=== PATIENT | female | born 1945 | race Caucasian/White ===

== ENCOUNTER → 2016-12-03 | Outpatient (CLI) | payer MEDICARE ==
[~2016-12-03] MED LIST: ASPI81TA85 PO; ATEN50TA2; ATEN50TA2 PO; CALCCHW12; CLAR10CA3 PO; CLAR5CHW; FISH1000; FISH1000 PO; HYDR25TA6; LASI40TA; LUTEIN; MOME50SP; MULTCAP PO; MULTIVIT; POTA20TA2; PRED20TA PO; PRIL20CA; PRIL40CA PO; SIMV10TA2; THERGRAN; VITA100C7; VITAMIN D-3; ZOCO10TA PO; femara; fishoil; lutein
--- NOTE | 2016-12-03 11:12 | REP ---
UNILATERAL MAMMOGRAM RIGHT BREAST: CLINICAL HISTORY: Breast cancer at age 54, left breast with left mastectomy. MLO, ML and CC views of the right breast are performed and compared to prior studies most recent of which is 12/02/2015. Mild scattered fibroglandular tissue is unchanged. There is no new mass or clustered microcalcifications. IMPRESSION: ACR 2 benign mammogram right breast in this patient, status post left mastectomy for left breast cancer. Followup exam is recommended in one year. BI-RADS/ACR category 2 mammogram. Benign finding(s). Routine annual screening mammography (for women over age 40). This mammogram was interpreted with the aid of an FDA-approved computer-aided detection system. A. Negative x-ray reports should not delay biopsy if a dominant or clinically suspicious mass is present. B. Four to eight percent of cancers are not identified by x-ray. C. Adenosis and dense breasts may obscure an underlying neoplasm. The patient states she/he had a clinical breast exam in March 2016. The patient letter being requested is M1. Signed by Ernesto Sanderson MD 12/03/2016 12:30 P
== END ==
LOC: M RAD 09:55
PROVIDERS: ATTEND Internal Medicine Medical Oncology
DX: Z12.31 Encounter for screening mammogram for malignant neoplasm of breast (principal); Z85.3 Personal history of malignant neoplasm of breast; Z90.12 Acquired absence of left breast and nipple

== ENCOUNTER → 2016-12-11 | Outpatient (REF) | payer MEDICARE ==
[2016-12-11 11:55] LABS: MEAN CORPUSCULAR HEMOGLOBIN 30.7 pg (27.0-33.0); MEAN CORPUSCULAR HGB CONC 33.6 g/dl (32.0-36.5); MEAN CORPUSCULAR VOLUME 91.3 fl (80.0-96.0); RED CELL DISTRIBUTION WIDTH 12.8 % (11.5-14.5); WHITE BLOOD COUNT 4.6 K/mm3 (4.0-10.0)
[2016-12-11 12:29] LABS: ALBUMIN 3.4 GM/DL (3.2-5.2); ALBUMIN/GLOBULIN RATIO 1.06 (1.00-1.93); BILIRUBIN,TOTAL 0.4 MG/DL (0.2-1.0); CALCIUM LEVEL 9.2 MG/DL (8.8-10.2); CREATININE FOR GFR 1.19 MG/DL (0.55-1.02); FREE T4 1.09 NG/DL (0.76-1.46); GLOMERULAR FILTRATION RATE 47.6 (>39); TOTAL PROTEIN 6.6 GM/DL (6.4-8.2)
== END ==
LOC: M SFHCCLAY 09:13
PROVIDERS: ATTEND Family Medicine
DX: I48.0 Paroxysmal atrial fibrillation (principal); I10 Essential (primary) hypertension

== ENCOUNTER → 2016-12-16 | Outpatient (REF) | payer MEDICARE | LOC: M SFHCCLAY 14:45 | PROVIDERS: ATTEND Family Medicine | DX: D64.9 Anemia, unspecified (principal); Z53.8 Procedure and treatment not carried out for other reasons ==

== ENCOUNTER → 2016-12-22 | Outpatient (REF) | payer MEDICARE ==
[2016-12-22 17:26] LABS: MEAN CORPUSCULAR HEMOGLOBIN 29.5 pg (27.0-33.0); MEAN CORPUSCULAR HGB CONC 32.8 g/dl (32.0-36.5); RED CELL DISTRIBUTION WIDTH 12.6 % (11.5-14.5); RETIC HEMOGLOBIN CONTENT CHr 30.8 PG (24-36); RETICULOCYTE % ADVIA2120 2.4 % (0.5-1.5); WHITE BLOOD COUNT 4.2 K/mm3 (4.0-10.0)
[2016-12-22 17:34] LABS: PERCENT SATURATION 30.1 % (13.2-37.4); TOTAL IRON BINDING CAPACITY 312 UG/DL (250-450); TOTAL PROTEIN 6.6 GM/DL (6.4-8.2)
[2016-12-22 17:41] LABS: VITAMIN B12 LEVEL 801 PG/ML (247-911)
[2016-12-22 17:42] LABS: FOLATE > 24.0 NG/ML (>5.4)
[2016-12-23 11:35] LABS: ALBUMIN 3.71 GM/DL (3.29-5.55); ALBUMIN % 56.2 % (55.8-66.1); GAMMA GLOBULIN % 15.1 % (11.1-18.8)
== END ==
LOC: M SFHCCLAY 10:05
PROVIDERS: ATTEND Family Medicine
DX: D64.9 Anemia, unspecified (principal)

== ENCOUNTER → 2017-12-06 | Outpatient (CLI) | payer MEDICARE | LOC: M RAD 09:56 | DX: Z12.31 Encounter for screening mammogram for malignant neoplasm of breast (principal); Z85.3 Personal history of malignant neoplasm of breast; Z90.12 Acquired absence of left breast and nipple | CPT/HCPCS: 77067 ==

== ENCOUNTER → 2018-10-27 | Outpatient (REF) | payer MEDICARE ==
[2018-10-27 17:13] LABS: ALBUMIN 3.6 GM/DL (3.2-5.2); BILIRUBIN,TOTAL 0.4 MG/DL (0.2-1.0); CALCIUM LEVEL 9.5 MG/DL (8.8-10.2); CREATININE FOR GFR 1.24 MG/DL (0.55-1.30); FREE T4 1.2 NG/DL (0.76-1.46); GLOMERULAR FILTRATION RATE 45.1 (>39); POTASSIUM SERUM 4.5 MEQ/L (3.5-5.1); THYROID STIMULATING HORMONE 2.88 uIU/ML (0.358-3.740); TOTAL PROTEIN 6.9 GM/DL (6.4-8.2)
[2018-10-27 17:30] LABS: HEMATOCRIT 38.4 % (36.0-47.0); HEMOGLOBIN 12.5 g/dl (12.0-15.5); MEAN CORPUSCULAR HEMOGLOBIN 29.8 pg (27.0-33.0); MEAN CORPUSCULAR HGB CONC 32.6 g/dl (32.0-36.5); MEAN CORPUSCULAR VOLUME 91.6 fl (80.0-96.0); PLATELET COUNT, AUTOMATED 252 10^3/uL (150-450); RED BLOOD COUNT 4.19 10^6/uL (4.00-5.40); WHITE BLOOD COUNT 6.3 10^3/uL (4.0-10.0)
== END ==
LOC: M SFHCCLAY 10:47
PROVIDERS: ATTEND Family Medicine
DX: I48.0 Paroxysmal atrial fibrillation (principal); I10 Essential (primary) hypertension; E04.2 Nontoxic multinodular goiter; Z85.3 Personal history of malignant neoplasm of breast

== ENCOUNTER → 2018-10-27 | Outpatient (CLI) | payer MEDICARE ==
--- NOTE | 2018-10-27 14:03 | REP ---
BILATERAL HIPS, AP PELVIS, FIVE VIEWS: HISTORY: Trochanteric bursitis. RIGHT HIP: There is no acute fracture or dislocation. There is minimal narrowing of the joint space. IMPRESSION: Degenerative change as described above. LEFT HIP: There is no acute fracture or dislocation. There is minimal narrowing of the joint space. IMPRESSION:Degenerative change as described above.
== END ==
LOC: M CLY 11:01
PROVIDERS: ATTEND Family Medicine
DX: M16.10 Unilateral primary osteoarthritis, unspecified hip (principal); M70.62 Trochanteric bursitis, left hip; M70.61 Trochanteric bursitis, right hip; I48.0 Paroxysmal atrial fibrillation

== ENCOUNTER → 2018-11-01 | Outpatient (CLI) | payer MEDICARE ==
--- NOTE | 2018-11-01 16:20 | REP ---
THYROID ULTRASOUND: 11/01/2018. Comparison: 03/26/2015. Clinical history: Multinodular goiter, follow-up. Right lobe of the thyroid measures 4.2 x 1.1 x 1.8 cm. Left lobe is 4.5 x 1.7 x 2.1 cm. On the previous study, the right lobe was 4.6 and the left 4.7 cm in length. Findings: Gland is homogeneous except for the nodules with a 5 x 4 x 2 mm solid nodule in the mid portion of the right lobe. There is a complex nodule in the lower pole on the left 1.4 x 1.2 x 1 cm. Another complex nodule in the mid pole region 7 x 7 x 6 mm and two other nodules on the left in the mid and upper pole 7 x 6 and 7 x 5 mm. The isthmus has a thickness of 5 mm. All the nodules are smaller than on the previous ultrasound in 2014. Impression: 1. Multinodular thyroid lobes as described. The nodules are all smaller or the same than previous study. Electronically Signed by Guerrero Crow MD 11/01/2018 06:02 P
== END ==
LOC: M RAD 10:55
PROVIDERS: ATTEND Family Medicine
DX: E04.0 Nontoxic diffuse goiter (principal)

== ENCOUNTER → 2018-12-07 | Outpatient (CLI) | payer MEDICARE ==
--- NOTE | 2018-12-07 13:44 | REP ---
UNILATERAL MAMMOGRAM RIGHT BREAST WITH 3D TOMOSYNTHESIS: HISTORY: Left breast cancer mastectomy. MLO and CC views of the right breast are performed with 3D tomosynthesis. Comparison made with prior studies, most recently 12/06/2017. Mild fibroglandular tissue is again seen in the right breast with no new mass or suspicious clusters of microcalcifications. There is no change since the prior studies. IMPRESSION: BIRADS 1: BI-RADS/ACR category 1 mammogram. Negative Mammogram. ACR 1 negative mammogram right breast in a patient status post left mastectomy. Suggest followup mammogram in 1 year. This mammogram was interpreted with the aid of an FDA-approved computer-aided detection system. A. Negative x-ray reports should not delay biopsy if a dominant or clinically suspicious mass is present. B. Four to eight percent of cancers are not identified by x-ray. C. Adenosis and dense breasts may obscure an underlying neoplasm. The patient states she/he had a clinical breast exam in March 2018. The patient letter being requested is M1 Electronically Signed by Ernesto Sanderson MD 12/07/2018 04:53 P
== END ==
LOC: M RAD 09:43
PROVIDERS: ATTEND Nurse Practitioner Family
DX: Z12.31 Encounter for screening mammogram for malignant neoplasm of breast (principal); Z85.3 Personal history of malignant neoplasm of breast; Z90.12 Acquired absence of left breast and nipple

== ENCOUNTER → 2019-02-08 | Outpatient (REF) | payer MEDICARE ==
[2019-02-08 12:27] LABS: CHOLESTEROL RISK RATIO 3.509 (<5)
== END ==
LOC: M SFHCCLAY 09:21
PROVIDERS: ATTEND Family Medicine
DX: E78.00 Pure hypercholesterolemia, unspecified (principal)

== ENCOUNTER → 2020-02-08 | Outpatient (CLI) | payer MEDICARE ==
[~2020-02-08] MED LIST changes: +CALCCAP4 PO; +ELIQ5TAB PO; +HYDR25TAB PO; +MIRA1POW3 PO; +OCUV1CAP4 PO; +OMEP40CA97 PO
--- NOTE | 2020-02-08 13:11 | REPMRS ---
Patient History The patient states she had a clinical breast exam in March 2019.. Patient has history of breast cancer at age 54 and had previous chest radiation therapy. Digital Woman Screen Mammo: February 08, 2020 - Exam #: [id number] Bilateral CC and MLO view(s) were taken. Technologist: Catherine Mcmanus, Technologist Prior study comparison: December 07, 2018, bilateral digital mammo screening bilat, performed at [facility]. December 06, 2017, bilateral digital mammo screening bilat, performed at [facility]. December 03, 2016, bilateral digital mammo screening bilat, performed at [facility]. FINDINGS: The breast tissue is almost entirely fat. The Volpara volumetric breast density category is: A . There has been no change in the appearance of the right breast parenchyma in the interval since the prior examination. No mass, architectural distortion, or microcalcific grouping has developed. No suspicious finding. 3-D tomosynthesis shows no additional findings. Assessment: BI-RADS/ACR category 2 mammogram. Benign Findings. Recommendation Routine screening mammogram of the right breast in 1 year. This mammogram was interpreted with the aid of an FDA-approved computer-aided dectection system. Electronically Signed By: Alexis Gonzalez MD 02/08/20 [id number]
== END ==
LOC: M WHC 09:54
PROVIDERS: ATTEND Nurse Practitioner Family
DX: Z12.31 Encounter for screening mammogram for malignant neoplasm of breast (principal); Z85.3 Personal history of malignant neoplasm of breast; Z90.12 Acquired absence of left breast and nipple; Z92.3 Personal history of irradiation

== ENCOUNTER → 2020-07-25 | Outpatient (REF) | payer MEDICARE ==
[~2020-07-25] MED LIST changes: -ASPI81TA85 PO; +ASPI81TA86 PO
[2020-07-25 12:06] LABS: ALBUMIN 3.2 GM/DL (3.2-5.2); BILIRUBIN,TOTAL 0.4 MG/DL (0.2-1.0); CALCIUM LEVEL 9.2 MG/DL (8.8-10.2); CHOLESTEROL RISK RATIO 3.272 (<5); CREATININE FOR GFR 1.27 MG/DL (0.55-1.30); GLOMERULAR FILTRATION RATE 43.8 (>39); MAGNESIUM LEVEL 2.1 MG/DL (1.8-2.4); POTASSIUM SERUM 4.1 MEQ/L (3.5-5.1); THYROID STIMULATING HORMONE 2.46 uIU/ML (0.358-3.740); TOTAL PROTEIN 6.7 GM/DL (6.4-8.2)
== END ==
LOC: M SFHCCLAY 08:52
PROVIDERS: ATTEND Family Medicine
DX: Z23 Encounter for immunization (principal); I48.0 Paroxysmal atrial fibrillation; I10 Essential (primary) hypertension

== ENCOUNTER → 2020-08-12 | Outpatient (CLI) | payer MEDICARE ==
--- NOTE | 2020-08-12 11:31 | DEXAMM ---
INDICATION: Z78.0/MENOPAUSE/M85.80/OSTEOPENIA. COMPARISON: Comparison studies are from December 20, 2015, August 13, 2008, August 08, 2007, and May 24, 2006.. TECHNIQUE: Bone density was measured using dual-energy x-ray absorptionmetry (DEXA). FINDINGS: AP SPINE L1-L4 BMD 1.198 g/cm2 Young Adult T-Score 0.0 Age Matched Z-Score 1.8. LT FEMUR, TOTAL BMD 0.929 g/cm2 Young Adult T-Score -0.6 Age Matched Z-Score 1.1. LT NECK BMD 0.881 g/cm2 Young Adult T-Score -1.1 Age Matched Z-Score 0.8. RT FEMUR, TOTAL BMD 0.932 g/cm2 Young Adult T-Score -0.6 Age Matched Z-Score 1.1. RT NECK BMD 0.928 g/cm2 Young Adult T-Score -0.8 Age Matched Z-Score 1.1. IMPRESSION: There is normal bone density of the spine. There is low bone density of the left hip. There is normal bone density of the right hip. The density of the spine has increased 5.6% since the initial exam on May 24, 2006. The density of the spine decrease 0.3% since most recent exam on December 20, 2015. The density of the left hip has decreased 4.5% since initial exam on May 24, 2006. The density of the left hip has decreased 1.9% since most recent exam on December 20, 2015. The density of the right hip has decreased 8.4% since the initial exam on May 24, 2006. The density of the right hip has decreased 5.9% since the most recent exam on December 20, 2015. FOLLOW-UP: Recommendation for the next bone density exam: 2 years. <Electronically signed by Alexis Gonzalez > 08/12/20 [id number]
== END ==
LOC: M WHC 09:53
PROVIDERS: ATTEND Family Medicine
DX: Z78.0 Asymptomatic menopausal state (principal); M85.80 Other specified disorders of bone density and structure, unspecified site

== ENCOUNTER → 2021-02-11 | Outpatient (CLI) | payer MEDICARE ==
[~2021-02-11] MED LIST changes: +HYDR-3490 PO; -HYDR25TAB PO
--- NOTE | 2021-02-11 12:14 | REPMRS ---
Patient History Patient has history of cancer in the left breast at age 63, has history of cancer in the left breast at age 54, and had previous chest radiation therapy. Family history of pancreatic cancer at age 50 or over in sister, breast cancer at age 58 in niece. Malignant mastectomy of the left breast, 2009. Patient states no breast complaints today. Patient has signed MRS History Sheet. Digital Woman Screen Mammo: February 11, 2021 - Exam #: [id number] Bilateral CC and MLO view(s) were taken. Technologist: RT Lashaun Prior study comparison: February 08, 2020, bilateral digital woman screen mammo performed at [facility]. December 07, 2018, bilateral digital mammo screening bilat, performed at [facility]. FINDINGS: There are scattered fibroglandular densities. Screening. Digital screening (2D) mammography was performed on the right breast in the CC and MLO projections. Additionally, breast tomosynthesis (3D mammography) was performed in the CC and MLO projections. Todays exam was compared to the prior exams. By history, the patient has no complaints of a palpable breast abnormality or other significant breast complaints. The breast is unchanged in size and shape. There are no fiona-soft tissue densities or spiculated masses. There is no internal architectural distortion. Once again, stable benign appearing calcifications are seen.There are no suspicious fiona-calcific clusters. Skin thickening or nipple retraction is not present. IMPRESSION: BI-RADS Category 2- Benign Findings. There is no evidence of malignant alteration of the breast. Followup examination recommended in one year. The Volpara volumetric breast density category is B, there are scattered areas of fibroglandular density. This mammogram was read with the assistance of [employer],an FDA approved computer aided detection system for mammography. Negative x-ray reports should not delay surgical consultation if a dominant or clinically suspicious mass is present. Not all breast cancers can be identified by mammography. Therefore, we recommend that you continue to perform regular breast self-examination and physical examination and then promptly contact your physician of any concerns or changes. Adenosis and dense breasts may obscure an underlying neoplasm. Assessment: BI-RADS/ACR category 2 mammogram. Benign Findings. Recommendation Routine screening mammogram of both breasts in 1 year. Electronically Signed By: Osmar Canas DO 02/11/21 [id number]
== END ==
LOC: M WHC 11:02
PROVIDERS: ATTEND Specialist
DX: Z12.31 Encounter for screening mammogram for malignant neoplasm of breast (principal); Z85.3 Personal history of malignant neoplasm of breast

== ENCOUNTER → 2021-07-29 | Outpatient (REF) | payer MEDICARE ==
[~2021-07-29] MED LIST changes: +BREAST PROSTHESIS L XX; +MASTECTOMY BRA LEFT XX; +OMEP40CA4 PO; -OMEP40CA97 PO
[2021-07-29 11:31] LABS: HEMATOCRIT 37.2 % (36.0-47.0); HEMOGLOBIN 12.2 g/dl (12.0-15.5); MEAN CORPUSCULAR HEMOGLOBIN 29.6 pg (27.0-33.0); MEAN CORPUSCULAR HGB CONC 32.8 g/dl (32.0-36.5); MEAN CORPUSCULAR VOLUME 90.3 fl (80.0-96.0); PLATELET COUNT, AUTOMATED 252 10^3/uL (150-450); RED BLOOD COUNT 4.12 10^6/uL (4.00-5.40); WHITE BLOOD COUNT 4.3 10^3/uL (4.0-10.0)
[2021-07-29 12:45] LABS: ALBUMIN 3.2 GM/DL (3.2-5.2); BILIRUBIN,TOTAL 0.4 MG/DL (0.2-1.0); CALCIUM LEVEL 9.8 MG/DL (8.8-10.2); CHOLESTEROL RISK RATIO 3.647 (<5); CREATININE FOR GFR 1.25 MG/DL (0.55-1.30); FREE T4 1.25 NG/DL (0.76-1.46); GLOMERULAR FILTRATION RATE 44.4 (>39); POTASSIUM SERUM 4.7 MEQ/L (3.5-5.1); THYROID STIMULATING HORMONE 3.17 uIU/ML (0.358-3.740); TOTAL PROTEIN 6.9 GM/DL (6.4-8.2)
== END ==
LOC: M SFHCCLAY 09:09
PROVIDERS: ATTEND Family Medicine
DX: E04.2 Nontoxic multinodular goiter (principal); I10 Essential (primary) hypertension; I48.0 Paroxysmal atrial fibrillation

== ENCOUNTER → 2021-07-29 | Outpatient (CLI) | payer MEDICARE ==
--- NOTE | 2021-07-29 10:18 | REP ---
INDICATION: M54.6 COMPARISON: None. TECHNIQUE: AP, lateral, and swimmers views. FINDINGS: Age-related osteopenia and degenerative changes. No acute fracture/compression injury or subluxation. IMPRESSION: Essentially age-related changes. No acute fracture/compression injury or subluxation. <Electronically signed by Stalin Temple > 07/29/21 [id number]
--- NOTE | 2021-07-29 10:19 | REP ---
INDICATION: M22.2X1, M22.2X2 COMPARISON: None TECHNIQUE: Five views each knee FINDINGS: Right knee: There is tricompartmental marginal osteophytosis but particularly affecting the medial compartment where there is mild medial compartmental narrowing. There is mild to moderate patellofemoral joint space narrowing. Left knee: There is tricompartmental marginal osteophytosis with mild medial compartmental narrowing and asymmetric patellofemoral joint space narrowing. IMPRESSION: Chronic changes seen bilaterally as described above. There is no evidence of an acute osseous abnormality. <Electronically signed by Osmar Canas > 07/29/21 1015
== END ==
LOC: M CLY 09:13
PROVIDERS: ATTEND Family Medicine
DX: M22.2X1 Patellofemoral disorders, right knee (principal); M22.2X2 Patellofemoral disorders, left knee; M54.6 Pain in thoracic spine; E04.2 Nontoxic multinodular goiter; I10 Essential (primary) hypertension; I48.0 Paroxysmal atrial fibrillation

== ENCOUNTER 2021-11-30 05:01 | Emergency (ER) | payer MEDICARE ==
[~2021-11-30] VITALS: Ht 165.1 cm; Wt 90.9 kg
[~2021-11-30 05:01] MED LIST changes: -MOME50SP; +NASO50SP3
[2021-11-30] MEDS ORDERED: ATOR1TAB19 (05:08)
[2021-11-30] MEDS ORDERED: FLEC50HA PO (05:08)
[2021-11-30 06:23] LABS: BASO # 0.1 10^3/uL (0.0-0.2); BASO % 0.5 % (0.0-1.0); EOS # 0.2 10^3/uL (0.0-0.5); EOS % 1.6 % (0.0-3.0); HEMATOCRIT 38.4 % (36.0-47.0); HEMOGLOBIN 12.8 g/dl (12.0-15.5); LYMPH # 1.1 10^3/uL (1.5-5.0); MEAN CORPUSCULAR HEMOGLOBIN 29.9 pg (27.0-33.0); MEAN CORPUSCULAR HGB CONC 33.3 g/dl (32.0-36.5); MEAN CORPUSCULAR VOLUME 89.7 fl (80.0-96.0); MONO # 0.5 10^3/uL (0.0-0.8); MONO % 5.4 % (2.0-8.0); NEUTROPHILS # 8.2 10^3/uL (1.5-8.5); NEUTROPHILS % 81.2 % (36.0-66.0); PLATELET COUNT, AUTOMATED 279 10^3/uL (150-450); RED BLOOD COUNT 4.28 10^6/uL (4.00-5.40); WHITE BLOOD COUNT 10.1 10^3/uL (4.0-10.0)
[2021-11-30 06:43] LABS: INR 1.13; PROTHROMBIN TIME 14.9 SECONDS (12.7-14.5)
[2021-11-30] MEDS: METOPROLOL 5 MG/5 ML VIAL IV SCH ×4 (06:47→08:10)
[2021-11-30 06:48] LABS: CALCIUM LEVEL 9.3 MG/DL (8.8-10.2); CK-MB VALUE MASS < 1.0 NG/ML (<3.6); CPK CREATINE PHOSPHOKINASE 54 U/L (26-192); CREATININE FOR GFR 1.4 MG/DL (0.55-1.30); GLOMERULAR FILTRATION RATE 38.9 (>39); MB/CK RELATIVE INDEX 1.85 (< OR =4); POTASSIUM SERUM 3.9 MEQ/L (3.5-5.1)
[2021-11-30] MEDS ORDERED: NS 500 ML IV ONE (07:55)
[2021-11-30] MEDS ORDERED: atenoloL 25 MG TAB PO ONE (08:40)
[2021-11-30] MEDS ORDERED: APIXABAN 5 MG TAB (ELIQUIS) PO ONE (08:55)
[2021-11-30] MEDS ORDERED: FLECAINIDE 50MG TABLET PO ONE (09:00)
[2021-11-30 09:12] VITALS: BP 145/96
[2021-11-30 11:56] VITALS: BP 127/60
== END 2021-11-30 12:04 | disposition home or self-care (01) ==
LOC: M ED 05:01
DX: I48.91 Unspecified atrial fibrillation (principal); I10 Essential (primary) hypertension; Z85.3 Personal history of malignant neoplasm of breast; R00.1 Bradycardia, unspecified; K44.9 Diaphragmatic hernia without obstruction or gangrene; Z79.01 Long term (current) use of anticoagulants; Z79.899 Other long term (current) drug therapy; Z88.8 Allergy status to other drugs, medicaments and biological substances

== ENCOUNTER 2022-01-13 10:22 | Observation (INO) | payer MEDICARE ==
[~2022-01-13] VITALS: Ht 165.1 cm; Wt 92.0 kg
[~2022-01-13 10:22] MED LIST changes: +ATOR1TAB19 PO; +FLEC50HA PO
[2022-01-13 11:45] LABS: BASO % 0.4 % (0.0-1.0); EOS % 0.4 % (0.0-3.0); HEMOGLOBIN 12.3 g/dl (12.0-15.5); LYMPH # 0.7 10^3/uL (1.5-5.0); LYMPH % 7.1 % (24.0-44.0); MEAN CORPUSCULAR HEMOGLOBIN 30.5 pg (27.0-33.0); MEAN CORPUSCULAR HGB CONC 33.2 g/dl (32.0-36.5); MEAN CORPUSCULAR VOLUME 91.8 fl (80.0-96.0); MONO # 0.5 10^3/uL (0.0-0.8); MONO % 4.6 % (2.0-8.0); NEUTROPHILS # 8.6 10^3/uL (1.5-8.5); PLATELET COUNT, AUTOMATED 257 10^3/uL (150-450); RED BLOOD COUNT 4.03 10^6/uL (4.00-5.40); WHITE BLOOD COUNT 9.9 10^3/uL (4.0-10.0)
[2022-01-13 12:00] LABS: INR 1.06; PROTHROMBIN TIME 14.2 SECONDS (12.7-14.5)
[2022-01-13 12:01] LABS: PARTIAL THROMBOPLASTIN TIME 30.4 SECONDS (25.9-37.0)
[2022-01-13 12:11] LABS: CK-MB VALUE MASS 1.5 NG/ML (<3.6); MB/CK RELATIVE INDEX 1.39 (< OR =4)
[2022-01-13 12:15] LABS: CREATININE FOR GFR 1.34 MG/DL (0.55-1.30); GLOMERULAR FILTRATION RATE 40.9 (>39); POTASSIUM SERUM 4.9 MEQ/L (3.5-5.1)
[2022-01-13] MEDS ORDERED: LR 1,000 ML IV SCH ×2 (12:50→16:00)
[2022-01-13] MEDS ORDERED: AMIODARONE 150MG/3ML INJ (J0282) As Ordered ONE (13:20)
[2022-01-13] MEDS ORDERED: ceFAZolin 1GM VIAL (J0690 PER 500MG) As Ordered ONE (13:20)
[2022-01-13] MEDS ORDERED: LIDOCAINE 1% SDV 30ML VIAL As Ordered ONE (13:20)
[2022-01-13] MEDS ORDERED: AMIODARONE HCL 150 MG/100 ML PREMIXED BAG (NEXTERONE) (J0282 PER 30MG) As Ordered ONE (13:23)
[2022-01-13] MEDS ORDERED: propofoL 200 MG/20 ML VIAL As Ordered ONE (13:23)
[2022-01-13] MEDS ORDERED: LIDOCAINE 2% 100MG/5ML SDV (FOR ANES.) As Ordered ONE (13:27)
[2022-01-13 13:44] LABS: RSV AMPLIFICATION NEGATIVE (NEGATIVE)
[2022-01-13] MEDS ORDERED: VANCOMYCIN 1000MG/20ML VIAL As Ordered ONE (13:55)
[2022-01-13] MEDS ORDERED: VANCOMYCIN 500MG/10ML VIAL As Ordered ONE (14:36)
[2022-01-13] MEDS ORDERED: traMADol 50 MG TAB PO PRN (15:45)
[2022-01-13] MEDS ORDERED: ACETAMINOPHEN TAB 650MG DOSE (2X325MG) PO PRN (16:00)
[2022-01-13] MEDS ORDERED: ONDANSETRON 4MG/2ML VIAL IV PRN (16:00)
[2022-01-13] MEDS ORDERED: PILL CUTTER 1 EACH XX PRN (16:10)
[2022-01-13 17:00] VITALS: BP 151/67
[2022-01-13 17:30] VITALS: BP 129/59
[2022-01-13 18:00] VITALS: BP 128/61
[2022-01-13] MEDS ORDERED: ATEN25TA PO (18:24)
[2022-01-13] MEDS ORDERED: PT COMMENT (18:26)
[2022-01-13 18:30] VITALS: BP 107/78
[2022-01-13] MEDS ORDERED: HOME MED LIST COMPLETE! XX SCH (18:30)
[2022-01-13] MEDS: ACETAMINOPHEN TAB 650MG DOSE (2X325MG) PO PRN (18:32)
[2022-01-13 20:00] VITALS: BP 109/53
[2022-01-13] MEDS: FLECAINIDE 50MG TABLET PO SCH (20:02)
[2022-01-13] MEDS ORDERED: OMEPRAZOLE 20MG CAP PO SCH (21:00)
[2022-01-13] MEDS ORDERED: ATORVASTATIN 10 MG TAB PO SCH (21:00)
[2022-01-14] VITALS (7 sets, daily range): BP systolic 99–125; BP diastolic 51–63
[2022-01-14] MEDS: ACETAMINOPHEN TAB 650MG DOSE (2X325MG) PO PRN (00:21)
[2022-01-14] MEDS ORDERED: VANCOMYCIN HCL 1,000 MG, VIAL MATE ADAPTER 1 EACH in NS 250 ML IV ONE (02:30)
[2022-01-14] MEDS: FLECAINIDE 50MG TABLET PO SCH (08:56)
[2022-01-14] MEDS ORDERED: atenoloL 50 MG TAB PO SCH (09:00)
[2022-01-14] MEDS ORDERED: LORATADINE 10 MG TAB PO SCH (09:00)
[2022-01-14] MEDS ORDERED: FLEC25TA PO (11:11)
== END 2022-01-14 12:15 | disposition home or self-care (01) ==
LOC: M ED 10:22 → M SDC 10:23 → M ICU 10:24
PROVIDERS: ADMIT Internal Medicine Cardiovascular Disease; ATTEND Internal Medicine Cardiovascular Disease
DX: I49.5 Sick sinus syndrome (principal); R55 Syncope and collapse; I48.0 Paroxysmal atrial fibrillation; K44.9 Diaphragmatic hernia without obstruction or gangrene; I51.7 Cardiomegaly; Z79.01 Long term (current) use of anticoagulants; N18.30 Chronic kidney disease, stage 3 unspecified; K21.9 Gastro-esophageal reflux disease without esophagitis; Z85.3 Personal history of malignant neoplasm of breast; Z79.899 Other long term (current) drug therapy; Z88.1 Allergy status to other antibiotic agents
CPT/HCPCS: 33208; 70450; 71045; 72125; 76000; 80048; 82550; 82553; 84484; 85025; 85610; 85730; 87631; 93005; 93041; 94760; 96365; 96375; 99284; C1785; C1898; G0378; J0690; J3370

== ENCOUNTER → 2022-02-12 | Outpatient (CLI) | payer MEDICARE ==
[~2022-02-12] MED LIST changes: +ATEN25TA PO; +FLEC25TA PO; +PT COMMENT
== END ==
LOC: M WHC 10:24
PROVIDERS: ATTEND Specialist
DX: Z12.31 Encounter for screening mammogram for malignant neoplasm of breast (principal)

== ENCOUNTER → 2022-02-25 | Outpatient (CLI) | payer MEDICARE | LOC: M SOG 08:27 | PROVIDERS: ATTEND Orthopaedic Surgery Adult Reconstructive Orthopaedic Surgery | DX: M25.561 Pain in right knee (principal); M25.562 Pain in left knee ==

== ENCOUNTER → 2022-04-23 | Outpatient (CLI) | payer MEDICARE ==
[~2022-04-23] MED LIST changes: +MULT-90 PO; +SIMV-252 PO; -ZOCO10TA PO
[2022-04-23 14:19] LABS: RHEUMATOID FACTOR QUANT < 10.0 IU/ML (<15.0)
[2022-04-23 14:47] LABS: THYROGLOBULIN ANTIBODY < 15.0 U/ML (<60.0); THYROID PEROXIDASE ANTIBODY 223.7 U/ML (<60.0)
[2022-04-23 17:54] LABS: FREE T3 2.2 PG/ML (2.2-4.0)
== END ==
LOC: M LAB 10:25
PROVIDERS: ATTEND Family Medicine
DX: D64.9 Anemia, unspecified (principal); R70.0 Elevated erythrocyte sedimentation rate; Z95.0 Presence of cardiac pacemaker

== ENCOUNTER → 2022-04-30 | Outpatient (CLI) | payer MEDICARE | LOC: M CARPUL 11:30 | PROVIDERS: ATTEND Family Medicine | DX: D64.9 Anemia, unspecified (principal); R07.9 Chest pain, unspecified ==

== ENCOUNTER → 2022-06-01 | Outpatient (REF) | payer MEDICARE ==
[2022-06-01 17:31] LABS: BASO # 0.1 10^3/uL (0.0-0.2); EOS # 0.1 10^3/uL (0.0-0.5); HEMATOCRIT 34.6 % (36.0-47.0); HEMOGLOBIN 11.1 g/dl (12.0-15.5); LYMPH # 0.8 10^3/uL (1.5-5.0); LYMPH % 13.1 % (24.0-44.0); MEAN CORPUSCULAR HEMOGLOBIN 30.3 pg (27.0-33.0); MEAN CORPUSCULAR HGB CONC 32.1 g/dl (32.0-36.5); MEAN CORPUSCULAR VOLUME 94.5 fl (80.0-96.0); MONO # 0.4 10^3/uL (0.0-0.8); MONO % 6.7 % (2.0-8.0); NEUTROPHILS # 4.7 10^3/uL (1.5-8.5); NEUTROPHILS % 76.9 % (36.0-66.0); PLATELET COUNT, AUTOMATED 284 10^3/uL (150-450); RED BLOOD COUNT 3.66 10^6/uL (4.00-5.40); WHITE BLOOD COUNT 6.1 10^3/uL (4.0-10.0)
== END ==
LOC: M SFHCCLAY 09:39
PROVIDERS: ATTEND Family Medicine
DX: I48.0 Paroxysmal atrial fibrillation (principal)

== ENCOUNTER → 2022-09-18 | Outpatient (REF) | payer MEDICARE, OTHER ==
[2022-09-18 18:38] LABS: BASO % 0.5 % (0.0-1.0); EOS # 0.1 10^3/uL (0.0-0.5); EOS % 1.3 % (0.0-3.0); HEMATOCRIT 37.5 % (36.0-47.0); HEMOGLOBIN 12.1 g/dl (12.0-15.5); LYMPH # 0.7 10^3/uL (1.5-5.0); LYMPH % 9.1 % (24.0-44.0); MEAN CORPUSCULAR HEMOGLOBIN 29.2 pg (27.0-33.0); MEAN CORPUSCULAR HGB CONC 32.3 g/dl (32.0-36.5); MEAN CORPUSCULAR VOLUME 90.6 fl (80.0-96.0); MONO # 0.5 10^3/uL (0.0-0.8); MONO % 6.5 % (2.0-8.0); NEUTROPHILS # 6.5 10^3/uL (1.5-8.5); NEUTROPHILS % 81.8 % (36.0-66.0); PLATELET COUNT, AUTOMATED 283 10^3/uL (150-450); RED BLOOD COUNT 4.14 10^6/uL (4.00-5.40); WHITE BLOOD COUNT 7.9 10^3/uL (4.0-10.0)
[2022-09-18 19:10] LABS: PERCENT SATURATION 15.3 % (13.2-45.0)
[2022-09-18 19:12] LABS: ALBUMIN 3.1 G/DL (3.2-5.2); BILIRUBIN,TOTAL 0.4 MG/DL (0.3-1.2); CALCIUM LEVEL 9.3 MG/DL (8.3-10.6); CREATININE FOR GFR 1.24 MG/DL (0.55-1.30); GLOMERULAR FILTRATION RATE 44.7 (>39); POTASSIUM SERUM 4.9 MMOL/L (3.5-5.1); TOTAL PROTEIN 6.8 G/DL (5.7-8.2)
[2022-09-18 19:13] LABS: FERRITIN 26.6 NG/ML (7.3-270.7)
[2022-09-18 19:31] LABS: CA15-3 ANTIGEN 14.8 U/ML (<32.4)
== END ==
LOC: M LABDRAWC 17:27
PROVIDERS: ATTEND Specialist
DX: C50.119 Malignant neoplasm of central portion of unspecified female breast (principal)

== ENCOUNTER → 2022-10-06 | Outpatient (CLI) | payer MEDICARE, OTHER | LOC: M SOG 08:06 | PROVIDERS: ATTEND Orthopaedic Surgery | DX: M54.6 Pain in thoracic spine (principal) ==

== ENCOUNTER → 2023-03-08 | Outpatient (CLI) | payer MEDICARE, OTHER | LOC: M WHC 12:22 | PROVIDERS: ATTEND Nurse Practitioner | DX: Z12.31 Encounter for screening mammogram for malignant neoplasm of breast (principal); Z85.3 Personal history of malignant neoplasm of breast; Z90.12 Acquired absence of left breast and nipple ==

== ENCOUNTER → 2023-06-22 | Outpatient (REF) | payer OTHER | LOC: M SFHCCLAY 12:08 | PROVIDERS: ATTEND Family Medicine | DX: I10 Essential (primary) hypertension (principal); I48.0 Paroxysmal atrial fibrillation; E04.2 Nontoxic multinodular goiter; K21.9 Gastro-esophageal reflux disease without esophagitis ==

== ENCOUNTER → 2023-07-02 | Outpatient (REF) | payer OTHER ==
[2023-07-02 12:04] LABS: HEMATOCRIT 34.9 % (36.0-47.0); HEMOGLOBIN 11.2 g/dl (12.0-15.5); MEAN CORPUSCULAR HEMOGLOBIN 29.6 pg (27.0-33.0); MEAN CORPUSCULAR HGB CONC 32.1 g/dl (32.0-36.5); MEAN CORPUSCULAR VOLUME 92.1 fl (80.0-96.0); PLATELET COUNT, AUTOMATED 249 10^3/uL (150-450); RED BLOOD COUNT 3.79 10^6/uL (4.00-5.40); WHITE BLOOD COUNT 5.3 10^3/uL (4.0-10.0)
[2023-07-06 15:37] LABS: BILIRUBIN,TOTAL 0.3 MG/DL (0.0-1.2); CALCIUM LEVEL 9.4 MG/DL (8.7-10.3); CREATININE FOR GFR 1.17 MG/DL (0.57-1.00); GLOMERULAR FILTRATION RATE 47.7 (>59); POTASSIUM SERUM 4.6 mmol/L (3.5-5.2)
[2023-07-06 15:38] LABS: ALBUMIN 3.6 G/DL (3.9-4.9); CHOLESTEROL RISK RATIO 3.933 (<5); FREE T4 1.18 NG/DL (0.82-1.77); LDL CHOLESTEROL 98.2 MG/DL (<100); THYROID STIMULATING HORMONE 3.56 uIU/ML (0.450-4.500); TOTAL PROTEIN 6.2 G/DL (6.0-8.5); URIC ACID 5.7 MG/DL (3.8-8.4)
== END ==
LOC: M SFHCCLAY 08:56
PROVIDERS: ATTEND Family Medicine
DX: I10 Essential (primary) hypertension (principal); I48.0 Paroxysmal atrial fibrillation; E04.2 Nontoxic multinodular goiter; K21.9 Gastro-esophageal reflux disease without esophagitis

== ENCOUNTER → 2024-02-04 | Outpatient (REF) | payer OTHER ==
[~2024-02-04] MED LIST changes: -MIRA1POW3 PO; +MIRA33506 PO
[2024-02-04 18:01] LABS: BASO # 0.1 10^3/uL (0.0-0.2); BASO % 0.9 % (0.0-1.0); EOS # 0.1 10^3/uL (0.0-0.5); EOS % 1.2 % (0.0-3.0); HEMOGLOBIN 11.7 g/dl (12.0-15.5); LYMPH # 1.1 10^3/uL (1.5-5.0); LYMPH % 18.5 % (24.0-44.0); MEAN CORPUSCULAR HEMOGLOBIN 29.7 pg (27.0-33.0); MEAN CORPUSCULAR HGB CONC 32.5 g/dl (32.0-36.5); MEAN CORPUSCULAR VOLUME 91.4 fl (80.0-96.0); MONO # 0.5 10^3/uL (0.0-0.8); MONO % 7.9 % (2.0-8.0); NEUTROPHILS # 4.2 10^3/uL (1.5-8.5); NEUTROPHILS % 71.3 % (36.0-66.0); PLATELET COUNT, AUTOMATED 220 10^3/uL (150-450); RED BLOOD COUNT 3.94 10^6/uL (4.00-5.40); WHITE BLOOD COUNT 5.9 10^3/uL (4.0-10.0)
[2024-02-04 18:24] LABS: PERCENT SATURATION 32.3 % (13.2-45.0)
[2024-02-04 18:25] LABS: ALBUMIN 3.2 G/DL (3.2-5.2); BILIRUBIN,TOTAL 0.5 MG/DL (0.3-1.2); CALCIUM LEVEL 9.4 MG/DL (8.3-10.6); CREATININE FOR GFR 1.41 MG/DL (0.55-1.30); FERRITIN 16.7 NG/ML (7.3-270.7); GLOMERULAR FILTRATION RATE 38.4 (>39); POTASSIUM SERUM 4.2 MMOL/L (3.5-5.1); TOTAL PROTEIN 6.4 G/DL (5.7-8.2)
[2024-02-04 18:26] LABS: FOLATE 22.1 NG/ML (>5.4)
== END ==
LOC: M LABDRAWC 17:03
PROVIDERS: ATTEND Specialist
DX: C50.919 Malignant neoplasm of unspecified site of unspecified female breast (principal)

== ENCOUNTER → 2024-04-04 | Outpatient (CLI) | payer OTHER | LOC: M WHC 10:31 | PROVIDERS: ATTEND Specialist | DX: Z12.31 Encounter for screening mammogram for malignant neoplasm of breast (principal) ==

== ENCOUNTER → 2024-06-26 | Outpatient (REF) | payer OTHER ==
[2024-06-26 15:40] LABS: ALBUMIN 3.3 G/DL (3.2-5.2); BILIRUBIN,TOTAL 0.4 MG/DL (0.3-1.2); CALCIUM LEVEL 9.6 MG/DL (8.3-10.6); CHOLESTEROL RISK RATIO 3.49 (<5); CREATININE FOR GFR 1.22 MG/DL (0.55-1.30); GLOMERULAR FILTRATION RATE 45.4 (>39); HDL CHOLESTEROL 57.2 MG/DL (>40); LDL CHOLESTEROL 113.4 MG/DL (<100); NON-HDL-C 142.8 MG/DL; TOTAL PROTEIN 6.7 G/DL (5.7-8.2)
[2024-06-26 15:41] LABS: THYROID STIMULATING HORMONE 4.123 uIU/ML (0.55-4.78)
[2024-06-26 15:42] LABS: FREE T4 1.24 NG/DL (0.89-1.76)
== END ==
LOC: M SFHCCLAY 09:12
PROVIDERS: ATTEND Family Medicine
DX: I48.0 Paroxysmal atrial fibrillation (principal); I10 Essential (primary) hypertension; E78.00 Pure hypercholesterolemia, unspecified

== ENCOUNTER → 2024-06-28 | Outpatient (REF) | payer OTHER ==
[2024-06-30 09:46] LABS: PROTEIN, TOTAL SO 6.6 g/dL (6.1-8.1)
[2024-07-03 06:07] LABS: ALBUMIN SO 3.7 g/dL (3.8-4.8); ALPHA 1 GLOBULINS SO 0.3 g/dL (0.2-0.3); ALPHA 2 GLOBULINS SO 0.7 g/dL (0.5-0.9); BETA 2 GLOBULIN SO 0.5 g/dL (0.2-0.5); BETA GLOBULIN SO 0.4 g/dL (0.4-0.6)
== END ==
LOC: M SFHCCLAY 10:02
PROVIDERS: ATTEND Family Medicine
DX: D89.2 Hypergammaglobulinemia, unspecified (principal)

== ENCOUNTER → 2025-01-08 | Outpatient (REF) | payer MEDICARE ==
[2025-01-08 18:17] LABS: ALBUMIN 3.3 G/DL (3.2-5.2); BILIRUBIN,TOTAL 0.5 MG/DL (0.3-1.2); CALCIUM LEVEL 9.4 MG/DL (8.3-10.6); CHOLESTEROL RISK RATIO 4.2 (<5); CREATININE FOR GFR 1.2 MG/DL (0.55-1.30); GLOMERULAR FILTRATION RATE 46.1 (>39); HDL CHOLESTEROL 52.6 MG/DL (>40); LDL CHOLESTEROL 136.6 MG/DL (<100); NON-HDL-C 168.4 MG/DL; POTASSIUM SERUM 4.6 MMOL/L (3.5-5.1); TOTAL PROTEIN 6.6 G/DL (5.7-8.2)
[2025-01-08 18:19] LABS: FREE T4 1.2 NG/DL (0.89-1.76); THYROID STIMULATING HORMONE 2.655 uIU/ML (0.55-4.78)
[2025-01-08 18:37] LABS: HEMOGLOBIN A1c 5.2 % (4.0-6.0)
== END ==
LOC: M SFHCCLAY 10:25
PROVIDERS: ATTEND Nurse Practitioner Family
DX: I48.0 Paroxysmal atrial fibrillation (principal); Z78.0 Asymptomatic menopausal state; I10 Essential (primary) hypertension; K21.9 Gastro-esophageal reflux disease without esophagitis; E78.00 Pure hypercholesterolemia, unspecified; Z95.0 Presence of cardiac pacemaker; C50.912 Malignant neoplasm of unspecified site of left female breast; D89.2 Hypergammaglobulinemia, unspecified; Z79.899 Other long term (current) drug therapy

== ENCOUNTER → 2025-01-15 | Outpatient (CLI) | payer MEDICARE | LOC: M SOG 07:49 | PROVIDERS: ATTEND Physician Assistant | DX: M17.0 Bilateral primary osteoarthritis of knee (principal) ==

== ENCOUNTER → 2025-04-06 | Outpatient (CLI) | payer MEDICARE | LOC: M WHC 11:03 | PROVIDERS: ATTEND Specialist | DX: Z12.31 Encounter for screening mammogram for malignant neoplasm of breast (principal); M85.851 Other specified disorders of bone density and structure, right thigh; M85.852 Other specified disorders of bone density and structure, left thigh; Z85.3 Personal history of malignant neoplasm of breast; Z90.12 Acquired absence of left breast and nipple | CPT/HCPCS: 77067; 77080; G0279 ==

== ENCOUNTER → 2025-07-10 | Outpatient (REF) | payer MEDICARE ==
[2025-07-10 18:34] LABS: ALT/SGPT 13.0 U/L (7.0-40); AST/SGOT 19.0 U/L (<34); CALCIUM LEVEL 9.2 MG/DL (8.3-10.6); CARBON DIOXIDE LEVEL 30.0 MMOL/L (20-31); CHLORIDE LEVEL 104.0 MMOL/L (98-107); CHOLESTEROL LEVEL 180.0 MG/DL (<200); CHOLESTEROL RISK RATIO 3.15 (<5); CREATININE FOR GFR 1.28 MG/DL (0.55-1.30); GLOMERULAR FILTRATION RATE 42.6 (>39); LDL CHOLESTEROL 94.8 MG/DL (<100); NON-HDL-C 123.0 MG/DL; POTASSIUM SERUM 4.4 MMOL/L (3.5-5.1); SODIUM LEVEL 141.0 MMOL/L (136-145); TRIGLYCERIDES LEVEL 141.0 MG/DL (<150)
== END ==
LOC: M SFHCCLAY 10:19
PROVIDERS: ATTEND Nurse Practitioner Family
DX: Z78.0 Asymptomatic menopausal state (principal); I48.0 Paroxysmal atrial fibrillation; I10 Essential (primary) hypertension; K21.9 Gastro-esophageal reflux disease without esophagitis; E78.00 Pure hypercholesterolemia, unspecified; Z95.0 Presence of cardiac pacemaker; C50.912 Malignant neoplasm of unspecified site of left female breast; D89.2 Hypergammaglobulinemia, unspecified